=== PATIENT | female | born 1985 | race Caucasian/White ===

== ENCOUNTER → 2017-11-06 | Outpatient (REF) | payer OTHER | LOC: M SFHCLERA 13:57 | DX: N39.0 Urinary tract infection, site not specified (principal) ==

== ENCOUNTER → 2018-01-18 | Outpatient (CLI) | payer OTHER ==
[2018-01-18 13:34] LABS: BASO % 0.5 % (0.0-1.0); EOS # 0.1 10^3/uL (0.0-0.50); EOS % 1.6 % (0.0-3.0); HEMATOCRIT 38.1 % (36.0-47.0); HEMOGLOBIN 12.4 g/dl (12.0-15.5); IMMATURE GRANULOCYTE % 0.3 % (0-3.0); LYMPH # 1.4 10^3/uL (1.5-4.5); LYMPH % 21.8 % (24.0-44.0); MEAN CORPUSCULAR HEMOGLOBIN 27.4 pg (27.0-33.0); MEAN CORPUSCULAR HGB CONC 32.5 g/dl (32.0-36.5); MEAN CORPUSCULAR VOLUME 84.3 fl (80.0-96.0); MONO # 0.6 10^3/uL (0.0-0.8); MONO % 9.5 % (0.0-5.0); NEUTROPHILS # 4.2 10^3/uL (1.8-7.7); NEUTROPHILS % 66.3 % (36.0-66.0); PLATELET COUNT, AUTOMATED 338 10^3/uL (150-450); RED BLOOD COUNT 4.52 10^6/uL (4.00-5.40); RED CELL DISTRIBUTION WIDTH 13.9 % (11.5-14.5); WHITE BLOOD COUNT 6.3 10^3/uL (4.0-10.0)
[2018-01-18 14:27] LABS: HBsAg Prenatal NEGATIVE (NEGATIVE); HIV 1&2 SCREEN CENTAUR NEGATIVE (NEGATIVE); RUBELLA IgG QUALITATIVE IMMUNE (IMMUNE)
[2018-01-18 14:27] LABS: HEPATITIS C VIRUS ABY INDEX 0.1 INDEX (<0.8)
[2018-01-18 15:48] LABS: CHLAMYDIA DNA AMPLIFICATION NEGATIVE (NEGATIVE); GC DNA AMPLIFICATION NEGATIVE (NEGATIVE)
== END ==
LOC: M SMT 10:41
DX: Z34.91 Encounter for supervision of normal pregnancy, unspecified, first trimester (principal); Z36.89 Encounter for other specified antenatal screening
CPT/HCPCS: 86762

== ENCOUNTER → 2018-02-15 | Outpatient (CLI) | payer OTHER | LOC: M SMT 13:06 | PROVIDERS: ATTEND Obstetrics & Gynecology | DX: Z36.89 Encounter for other specified antenatal screening (principal); Z13.79 Encounter for other screening for genetic and chromosomal anomalies ==

== ENCOUNTER → 2018-03-31 | Outpatient (CLI) | payer OTHER ==
--- NOTE | 2018-03-31 14:57 | REP ---
Clinical: Anatomical evaluation. Comparison: None . Findings: Examination demonstrates a single live intrauterine in transverse (head to maternal right) presentation. motion is identified by technologist. Placenta is noted posterior and grade grade zero without evidence for placenta previa or abruption. Amniotic fluid volume is normal. Cervix measures 4.1 cm in length and appears closed. No evidence for nuchal cord. Gestational age by LMP 19 weeks 1 day with GREGOR 08/24/2018 . Gestational age by current measurements 19 weeks 0 days with GREGOR 08/25/2018 . FHR equals 141 beats per minute. BPD 3.9 cm 18 weeks 0 days HC 16.2 cm 19 weeks 0 days AC 14.5 cm 19 weeks 6 days FL 2.9 cm 18 weeks 5 days HL 3.0 cm 19 weeks 5 days HC/AC ratio 1.11 Estimated weight 282 grams ( 52nd percentile). Anatomical assessment demonstrates normal structures including cranium, choroid plexus, cavum, cerebellum/posterior fossa, facial features, lungs, four-chamber heart/ventricular outflow tracts, diaphragm, stomach, cord insertion/three-vessel cord, kidneys/bladder, spine, and extremities. Impression: Single live intrauterine in transverse presentation demonstrating appropriate interval growth. Anatomical assessment is complete and normal. Electronically Signed by Ward Cervantes MD 03/31/2018 02:49 P
== END ==
LOC: M RAD 10:04
PROVIDERS: ATTEND Advanced Practice Midwife
DX: Z36.89 Encounter for other specified antenatal screening (principal); Z3A.19 19 weeks gestation of pregnancy

== ENCOUNTER → 2018-05-23 | Outpatient (CLI) | payer OTHER ==
[2018-05-23 17:47] LABS: BASO % 0.5 % (0.0-1.0); EOS # 0.4 10^3/uL (0.0-0.50); EOS % 4.2 % (0.0-3.0); HEMATOCRIT 34.6 % (36.0-47.0); HEMOGLOBIN 11.1 g/dl (12.0-15.5); LYMPH # 1.3 10^3/uL (1.5-4.5); LYMPH % 15.2 % (24.0-44.0); MEAN CORPUSCULAR HEMOGLOBIN 28.5 pg (27.0-33.0); MEAN CORPUSCULAR HGB CONC 32.1 g/dl (32.0-36.5); MEAN CORPUSCULAR VOLUME 88.7 fl (80.0-96.0); MONO # 0.7 10^3/uL (0.0-0.8); MONO % 7.9 % (0.0-5.0); NEUTROPHILS # 6.2 10^3/uL (1.8-7.7); NEUTROPHILS % 71.6 % (36.0-66.0); PLATELET COUNT, AUTOMATED 320 10^3/uL (150-450); WHITE BLOOD COUNT 8.7 10^3/uL (4.0-10.0)
== END ==
LOC: M LRY 13:27
PROVIDERS: ATTEND Specialist
DX: Z34.82 Encounter for supervision of other normal pregnancy, second trimester (principal)

== ENCOUNTER → 2018-07-28 | Outpatient (CLI) | payer OTHER ==
--- NOTE | 2018-07-28 14:03 | REP ---
OB ULTRASOUND: Real-time sonographic evaluation of the gravid uterus is performed. There is a single living intrauterine gestation with estimated gestational age 36 weeks 1 day, EDC 08/24/2018. Today's measurements indicate appropriate growth. Biometry and Growth: BPD 85 mm = 34 weeks 1 day, 21st percentile HC 318 mm = 35 weeks 5 days, 44th percentile AC 349 mm = 38 weeks 6 days, 91st percentile FL 68 mm = 35 weeks 0 days, 33rd percentile HC/AC ratio 0.91 is slightly below normal range of 0.92 to 1.11. Estimated weight 3095 grams, 67th percentile. Cervical length: Closed and measures 5.3 cm in length. heart rate: 143 beats per minute. position: Vertex. Placenta: Posterior and fundal and grade 1 with no previa or abruption. Amniotic fluid: Within normal limits, RODRIGO 11.3 within normal range of 7.7 to 24.9. S/D ratio 1.99 within normal range of 1.96 to 2.96. RI: 0.50, slightly below normal range of 0.59 to 0.75. Visualized anatomy today includes the upper lip, stomach, three-vessel cord, kidneys and bladder which are all grossly unremarkable. Electronically Signed by Hayes Hays MD 07/28/2018 02:36 P
== END ==
LOC: M RAD 11:09
PROVIDERS: ATTEND Advanced Practice Midwife
DX: O26.843 Uterine size-date discrepancy, third trimester (principal); Z3A.36 36 weeks gestation of pregnancy

== ENCOUNTER → 2018-08-01 | Outpatient (REF) | payer OTHER | LOC: M LAB REF 12:48 | PROVIDERS: ATTEND Advanced Practice Midwife | DX: O34.211 Maternal care for low transverse scar from previous cesarean delivery (principal); Z3A.00 Weeks of gestation of pregnancy not specified ==

== ENCOUNTER → 2018-08-08 | Outpatient (CLI) | payer OTHER | LOC: M SMT 11:58 | PROVIDERS: ATTEND Advanced Practice Midwife | DX: Z34.83 Encounter for supervision of other normal pregnancy, third trimester (principal); Z3A.00 Weeks of gestation of pregnancy not specified ==

== ENCOUNTER 2018-08-24 13:15 | Inpatient (IN) | payer OTHER ==
[2018-08-24] VITALS (18 sets, daily range): BP systolic 107–145; BP diastolic 57–88
[~2018-08-24] VITALS: Ht 154.9 cm; Wt 105.7 kg
[2018-08-24] MEDS ORDERED: ZANT150T40 PO (13:43)
[2018-08-24] MEDS ORDERED: PRENTAB9 PO (13:43)
[2018-08-24] MEDS ORDERED: ZYRTTAB8 PO (13:43)
[2018-08-24] MEDS ORDERED: OXYTOCIN DRIP 30 UNITS in APPROPRIATE DILUENT 1 EA IV SCH (14:00)
--- NOTE | 2018-08-24 14:01 | HPEPDOC ---
Obstetrical History & Physical General Date of Admission Aug 24, 2018 at 13:15 History of Present Illness 33 yo at 39 5/7 wks presenting for IOL/TOLAC She feels well today. Reports occasional ctx but denies regular painful ctx. No VB, LOF, +FM. Otherwise feeling well HCP: GREGOR 08/26/18 -h/o CS in G1 for FTP, followed by successful -h/o LEEP PNL: A+, antibody neg, RI RPR nr, Hep B neg, HIV neg, HCV neg, GC/CG neg, GBS+ PMH: GERD, seasonal allergies PSH: LEEP, CS Meds: PNV, zantac All: novocaine SH: denies e/t/d Past Medical History Past Obstetrical History : Past Obstetrical History: Multigravida Past Medical History Surgical History: section Family History Significant Family History: No pertinent family hx Social History Marital Status: Family situation: Spouse/partner home Psychosocial History: No pertinent psych hx * Smoker: non-smoker Allergies Coded Allergies: procaine (Verified Allergy, Severe, FACIAL SWELLING, NO RXN TO LIDOCAINE, 08/24/18) Medications Scheduled No.137/Iron/Folic Acd ( Vitamin Tablet) 1 Each Tablet, 1 TAB PO DAILY Ranitidine Hcl (Zantac) 150 Mg Tablet, 1 TAB PO BID Miscellaneous Medications Cetirizine HCl/Pseudoephedrine (Zyrtec-D Tablet) 1 Each Tab.er.12h, 1 TAB PO Physical Examination Physical Examination GENERAL: Alert and oriented times three. ABDOMEN: Gravid and non-tender to touch. EXTREMITIES: No edema. No clonus. Vital Signs/I&O Vital Signs Date Time Temp Pulse Resp B/P (MAP) Pulse Ox O2 Delivery O2 Flow Rate FiO2 08/24/18 13:37 98.5 96 18 137/66 (89) Laboratory Data 24H LABS Laboratory Tests 2 08/24/18 13:45: Serology Scanned Report Hepatitis B Testing Pertinent Laboratoy Data Blood Type: A+ RBC Antibody Screen: Negative HIV: Negative Hepatitis B: Negative Hepatitis C: Negative Rapid Plasma Reagin: Nonreactive Rubella: Immune Chlamydia/Gonorrhea: Negative Group B Streptococcus: Positive Other Ultrasounds 01/18/2018: viabilityTransabdominal ultrasound (limited). SIUP with cardiac activity present. FHR =178. CRL is consistent with 8 weeks 4 days gestation with a final GREGOR of 08/26/18. 03/31/2018: Anatomy SIUP. Transverse(head to maternal right) presentation. Placenta posterior, grade 0 wihout previa or abruption. AFV: normal. Cx: 4.1cm, closed. FHR: 141 bpm. EFW: 282 grams (52%). Anatomical assessment is complete and normal. 07/28/2018: Size/Date discrepancySIUP, FHR 143. EFW 3095grams, 67%. Placenta posterior grade 1, no previa or abruption. RODRIGO 11.3. Closed cervix 5.3cm. S/D 1.99. Appropriate growth. Vaginal Examination Dilation: 2cm Effacement: 50% Station: -2 Cervical Consistency: Medium Cervical Position: Posterior Assessment Heart Rate (FHR): 130 Variability: Moderate Accelerations: Positive Decelerations: None Tocometer Contractions: No Assessment/Plan Assessment 33 yo at 39 5/7 wks for IOL/TOLAC Plan Admit, labs, IV IOL: Will start with lala and pit, not candidate for prostaglandin due to TOLAC FWB: reassuring MOD: ceph for TOLAC, will also consent for CS GBS+, start PRANEETH ALBERTS PGY-3 Aug 24, 2018 14:01
[2018-08-24] MEDS: LR 1,000 ML IV SCH ×2 (14:45→17:03)
[2018-08-24 15:04] LABS: BASO % 0.5 % (0.0-1.0); EOS # 0.2 10^3/uL (0.0-0.50); EOS % 2.1 % (0.0-3.0); HEMATOCRIT 37.5 % (36.0-47.0); HEMOGLOBIN 12.4 g/dl (12.0-15.5); LYMPH # 1.3 10^3/uL (1.5-4.5); LYMPH % 15.1 % (24.0-44.0); MEAN CORPUSCULAR HEMOGLOBIN 28.8 pg (27.0-33.0); MEAN CORPUSCULAR HGB CONC 33.1 g/dl (32.0-36.5); MONO # 0.8 10^3/uL (0.0-0.8); MONO % 9.3 % (0.0-5.0); NEUTROPHILS # 6.4 10^3/uL (1.8-7.7); NEUTROPHILS % 72.2 % (36.0-66.0); PLATELET COUNT, AUTOMATED 291 10^3/uL (150-450); RED BLOOD COUNT 4.31 10^6/uL (4.00-5.40); WHITE BLOOD COUNT 8.9 10^3/uL (4.0-10.0)
[2018-08-24] MEDS ORDERED: PENICILLIN G POTASSIUM IV 5 MU in D5W MINI-BAG PLUS 100 ML IV STA (15:37)
--- NOTE | 2018-08-24 20:04 | NUR ---
L&D Note: S: Feeling more uncomfortable O: vss, AF cat 1 tracing with ctx q 3mins gen: well appearing cx: 2/50/-3, Cooks placed 70/30ml A/P: 33yo TOLAC IOL reassuring status -cont pitocin IOL -epidural at request Goldie Jimenez MD
[2018-08-24] MEDS: PENICILLIN G POTASSIUM IV 2.5 MU in APPROPRIATE DILUENT 1 EA IV SCH (20:21)
[2018-08-25] VITALS (62 sets, daily range): BP systolic 87–144; BP diastolic 49–79
[2018-08-25] MEDS: PENICILLIN G POTASSIUM IV 2.5 MU in APPROPRIATE DILUENT 1 EA IV SCH ×3 (00:32→10:15)
[2018-08-25] MEDS ORDERED: FENTANYL 2MCG/ML ROPIVACAINE 0.2% IN 0.9% NACL 100ML IVBAG As Ordered ONE (01:57)
[2018-08-25] MEDS: FENTANYL/ROPIVACAINE/NACL BAG 100 ML EPIDURAL SCH ×2 (02:27→10:28)
[2018-08-25] MEDS ORDERED: EPIDURAL COMMENT XX SCH (03:00)
[2018-08-25] MEDS ORDERED: ONDANSETRON 4MG/2ML VIAL (J2405) IV PRN (03:00)
[2018-08-25] MEDS ORDERED: EPIDURAL/PCA KEYS XX PRN (03:00)
[2018-08-25] MEDS ORDERED: ePHEDrine SULFATE 25 MG/5 ML(5MG/ML) SYRINGE IV PRN (03:00)
[2018-08-25] MEDS ORDERED: diphenhydrAMINE INJ 50MG/ML VIAL (J1200) IV PRN (03:00)
[2018-08-25] MEDS ORDERED: NALOXONE INJ 0.4 MG/1 ML VIAL (J2310) IV PRN (03:00)
[2018-08-25] MEDS ORDERED: LACTATED RINGER'S 1000 ML IV PRN (03:00)
[2018-08-25] MEDS ORDERED: REFRIGERATOR IV KEYS XX PRN (03:00)
--- NOTE | 2018-08-25 07:50 | IPNPDOC ---
Text Note Date of Service The patient was seen on 08/25/18. NOTE Reports intermittent pressure Pitocin @ 6mu UC 2-4 minutes apart x 45-60 seconds FH 135, Cat I SVE large amount of cervix remains on pt right, 8-9 cm, unable to reduce with UC Peanut ball and lateral positioning. Reassess VS,Fishbone, I+O VS, Fishbone, I+O Laboratory Tests 08/24/18 14:42 Red Blood Count 4.31, Mean Corpuscular Volume 87.0, Mean Corpuscular Hemoglobin 28.8, Mean Corpuscular Hemoglobin Concent 33.1, Red Cell Distribution Width 14.4, Neutrophils (%) (Auto) 72.2 H, Lymphocytes (%) (Auto) 15.1 L, Monocytes (%) (Auto) 9.3 H, Eosinophils (%) (Auto) 2.1, Basophils (%) (Auto) 0.5, Neutrophils # (Auto) 6.4, Lymphocytes # (Auto) 1.3 L, Monocytes # (Auto) 0.8, Eosinophils # (Auto) 0.2, Basophils # (Auto) 0.0 Vital Signs Date Time Temp Pulse Resp B/P (MAP) Pulse Ox O2 Delivery O2 Flow Rate FiO2 08/25/18 06:42 116 136/60 (85) 08/25/18 05:11 98.0 08/25/18 02:28 22 I&O- Last 24 Hours up to 6 AM 08/25/18 05:59 Intake Total 3450 ml Output Total 1700 ml Balance 1750 ml Em Jones CNM Aug 25, 2018 07:50
--- NOTE | 2018-08-25 09:53 | IPNPDOC ---
Text Note Date of Service The patient was seen on 08/25/18. NOTE Fully, 0 station UC 3-4 minutes x 60 seconds FH 150, Cat I Pitcocin @ 10mu Labor down VS,Fishbone, I+O VS, Fishbone, I+O Laboratory Tests 08/24/18 14:42 Red Blood Count 4.31, Mean Corpuscular Volume 87.0, Mean Corpuscular Hemoglobin 28.8, Mean Corpuscular Hemoglobin Concent 33.1, Red Cell Distribution Width 14.4, Neutrophils (%) (Auto) 72.2 H, Lymphocytes (%) (Auto) 15.1 L, Monocytes (%) (Auto) 9.3 H, Eosinophils (%) (Auto) 2.1, Basophils (%) (Auto) 0.5, Neutrophils # (Auto) 6.4, Lymphocytes # (Auto) 1.3 L, Monocytes # (Auto) 0.8, Eosinophils # (Auto) 0.2, Basophils # (Auto) 0.0 Vital Signs Date Time Temp Pulse Resp B/P (MAP) Pulse Ox O2 Delivery O2 Flow Rate FiO2 08/25/18 06:42 116 136/60 (85) 08/25/18 05:11 98.0 08/25/18 02:28 22 I&O- Last 24 Hours up to 6 AM 08/25/18 06:00 Intake Total 3450 ml Output Total 1700 ml Balance 1750 ml Em Jones CNM Aug 25, 2018 09:53
[2018-08-25] MEDS: LR 1,000 ML IV SCH (10:20)
[2018-08-25] MEDS ORDERED: CALCIUM CARBONATE 500 MG CHEW U/D PO PRN (10:30)
[2018-08-25] MEDS ORDERED: DOCUSATE SODIUM 100 MG CAP PO PRN (12:30)
[2018-08-25] MEDS ORDERED: ACETAMINOPHEN 500 MG TAB PO PRN (12:30)
[2018-08-25] MEDS ORDERED: RHOGAM 300 MCG (1500 IU) INJ (J2790) IM SCH (12:30)
[2018-08-25] MEDS ORDERED: miSOPROStol 200 MCG TAB (S0191) PR ONE (12:30)
[2018-08-25] MEDS ORDERED: DIBUCAINE 1% OINTMENT 30GM TOP PRN (12:30)
[2018-08-25] MEDS ORDERED: IBUPROFEN 600 MG TAB PO PRN (12:30)
[2018-08-25] MEDS ORDERED: MEASLES,MUMPS,RUBELLA VACCINE INJ (MMR-II) (90707) SC SCH (12:30)
[2018-08-25] MEDS ORDERED: ACETAMINOPHEN TAB 650MG DOSE (2X325MG) PO PRN (12:30)
--- NOTE | 2018-08-25 12:34 | DNPDOC ---
[facility] Delivery Note Delivery Note DATE OF DELIVERY: August 25, 2018 PREDELIVERY DIAGNOSIS: 39-6/7 weeks' gestation and labor. POST DELIVERY DIAGNOSIS: Delivered. PROCEDURE: Vaginal delivery after () PROVIDER: Em Jones CNM ANESTHESIA: Epidural ESTIMATED BLOOD LOSS: 500 mL. FINDINGS: 8 pound 9 ounce, 3880gm male infant, Score 5/7/9, nuchal cord times 1 reduced prior to delivery, true knot in cord. Shoulder dystocia x 105 seconds. DELIVERY SUMMARY: Patient is a 33-year-old 4 now para 3-0-1-3 who was admitted to labor and delivery for labor. She received pitocin augmentation of labor and utilized an epidural for labor coping. AROM clear fluid 0115. Fully dilated 0939. Commenced pushing 1049. Vertex delivered RYAN, restituted to ROP, nuchal cord reduced. 105 second shoulder dystocia encountered relieved with MacRoberts, suprapubic pressure. Viable male delivered 1150. Cord doubly clamped and cut, infant to warmer for stimulation and resuscitation. Apgars 5/7/9. Placenta tran, intact with 3v cord and true knot in cord @ 1156. Fundus firmed with massage and IV pitocin bolus, however brisk bleeding persisted despite fundal and bimanual massage. Misoprostol 1000mcg MO given with excellent control of bleeding. EBL 500ml. 2nd degree perineal laceration repaired in layers with 3-0 vicryl rapide. Sponge, sharp and instrument count correct. Parents are naming their son Em Jones CNM Aug 25, 2018 12:34
[2018-08-25 12:40] LABS: CORD GAS HCO3 A 22.3 MEQ/L; CORD GAS O2 SAT A 76.4 %; CORD GAS PCO2 A 54.7 mmHg; CORD GAS PO2 A 39.3 mmHg; CORD GAS SBC A 19.1 MEQ/L
[2018-08-25 12:41] LABS: CORD GAS PH A 7.228 UNITS
[2018-08-25 12:42] LABS: CORD GAS ABE V -5.5; CORD GAS HCO3 V 21.5 MEQ/L; CORD GAS O2 SAT V 82.2 %; CORD GAS PCO2 V 47.3 mmHg; CORD GAS PH V 7.275 UNITS; CORD GAS PO2 V 40.4 mmHg; CORD GAS SBC V 19.6 MEQ/L; CORD GAS TCO2 V 22.9 MEQ/L
[2018-08-25] MEDS: METHYLERGONOVINE MALEATE 0.2 MG TAB PO SCH ×2 (13:48→17:48)
[2018-08-25] MEDS: IBUPROFEN 800 MG TAB PO PRN (15:37)
[2018-08-25] MEDS: CETIRIZINE (ZyrTEC) 10 MG TAB PO SCH (17:45)
[2018-08-26] MEDS: METHYLERGONOVINE MALEATE 0.2 MG TAB PO SCH ×2 (00:03→05:36)
[2018-08-26 06:34] VITALS: BP 126/72
--- NOTE | 2018-08-26 07:41 | IPNPDOC ---
Text Note Date of Service The patient was seen on 08/26/18. NOTE Feels well. . Adequate pain management. Voiding VSS, afebrile and normotensive Breasts soft Fundus firm NT, down 1 FB Lochia rubra light without odor Perineum well approximated without edema PP #1 Anticipate D/C angelita VS,Fishbone, I+O VS, Fishbone, I+O Vital Signs Date Time Temp Pulse Resp B/P (MAP) Pulse Ox O2 Delivery O2 Flow Rate FiO2 08/26/18 06:34 98.2 73 16 126/72 (90) 08/25/18 18:00 99 I&O- Last 24 Hours up to 6 AM 08/26/18 05:59 Intake Total 5796 ml Output Total 1600 ml Balance 4196 ml Em Jones CNM Aug 26, 2018 07:41
[2018-08-26] MEDS: CETIRIZINE (ZyrTEC) 10 MG TAB PO SCH (08:40)
[2018-08-26] MEDS: IBUPROFEN 800 MG TAB PO PRN (08:41)
[2018-08-26] MEDS ORDERED: PRENATAL VITAMINS CHEWABLE TABLET PO SCH (09:00)
[2018-08-26] MEDS ORDERED: METHYLERGONOVINE MALEATE 0.2 MG TAB PO PRN (12:00)
[2018-08-26] MEDS ORDERED: ACET-683 PO (14:14)
[2018-08-26] MEDS ORDERED: IBUP80TA PO (14:14)
== END 2018-08-26 17:15 | disposition home or self-care (01) | DRG 807 ==
LOC: M LDI 13:15 → M OBS 08-25 15:00
PROVIDERS: ADMIT Obstetrics & Gynecology; ATTEND Advanced Practice Midwife
PROC: 3E033VJ Introduction of Other Hormone into Peripheral Vein, Percutaneous Approach (ICD-10-PCS; 2018-08-24)
PROC: 10E0XZZ Delivery of Products of Conception, External Approach (ICD-10-PCS; principal; 2018-08-25)
PROC: 0KQM0ZZ Repair Perineum Muscle, Open Approach (ICD-10-PCS; 2018-08-25)
PROC: 10907ZC Drainage of Amniotic Fluid, Therapeutic from Products of Conception, Via Natural or Artificial Opening (ICD-10-PCS; 2018-08-25)
DX: O34.211 Maternal care for low transverse scar from previous cesarean delivery (principal); Z37.0 Single live birth; Z3A.39 39 weeks gestation of pregnancy; O99.824 Streptococcus B carrier state complicating childbirth; O99.62 Diseases of the digestive system complicating childbirth; K21.9 Gastro-esophageal reflux disease without esophagitis; O77.0 Labor and delivery complicated by meconium in amniotic fluid; O69.81X0 Labor and delivery complicated by cord around neck, without compression, not applicable or unspecified; O66.0 Obstructed labor due to shoulder dystocia; O70.1 Second degree perineal laceration during delivery; O69.2XX0 Labor and delivery complicated by other cord entanglement, with compression, not applicable or unspecified

== ENCOUNTER → 2020-04-10 | Outpatient (REF) | payer OTHER ==
[~2020-04-10] MED LIST: ACET-683 PO; IBUP80TA PO; PRENTAB9 PO; ZANT150T40 PO; ZYRTTAB8 PO
== END ==
LOC: M SFHCWAGY 13:03
PROVIDERS: ATTEND Advanced Practice Midwife
DX: Z12.4 Encounter for screening for malignant neoplasm of cervix (principal)